=== PATIENT | female | born 1960 | race Caucasian/White ===

== ENCOUNTER 2018-06-12 15:44 | Emergency (ER) | payer BC ==
--- NOTE | 2018-06-12 16:48 | RAD ---
RADIOGRAPH LEFT FIFTH DIGIT THREE VIEWS: HISTORY: A 58-year-old female status post acute traumatic injury to the fifth digit. FINDINGS: Best seen on the lateral view, there is an obliquely oriented linear fracture of the proximal metaphy sis of the fifth distal phalanx, with the proximal component extending to involve the fifth DIP joint surface, without step-off at that joint surface. There is minimal, approximately 0.5 mm volar displ acement of the major distal fragment (minimal dorsal displacement of the posterior proximal fragment) . No other fracture. IMPRESSION: Acute, traumatic, closed, minimally displaced, oblique fracture of the base of the fifth distal phala nx, with intraarticular component. POS: CANDE
[2018-06-12] MEDS ORDERED: Lidocaine 1% w/Epinephrine 1:100K 20 ML VIAL ONE (17:22)
[2018-06-12] MEDS ORDERED: Bacitracin Zinc 1 Packet ONE (17:57)
== END 2018-06-12 18:10 | disposition home or self-care (01) ==
LOC: ERS 15:44
DX: S62.637A Displaced fracture of distal phalanx of left little finger, initial encounter for closed fracture (principal); S61.217A Laceration without foreign body of left little finger without damage to nail, initial encounter; W31.89XA Contact with other specified machinery, initial encounter
CPT/HCPCS: 12001; J2001

== ENCOUNTER 2019-01-01 11:43 | Outpatient (CLI) | payer BC ==
--- NOTE | 2019-01-17 15:48 | MMO ---
Bilateral MAMMO Bilat Screen DDI+BETI. CLINICAL HISTORY: Patient is 58 years old and is seen for screening. The patient has the following family history of breast cancer: paternal grandmother, at age 90, and Throat Cancer and cousin female. The patient has no personal history of cancer. VIEWS: The views performed were: bilateral craniocaudal with tomosynthesis and bilateral mediolateral oblique with tomosynthesis. FILMS COMPARED: The present examination has been compared to prior imaging studies performed at [facility] on 07/02/2002, 12/04/2004, 10/31/2006, 11/01/2008, 01/30/2010, 01/13/2012, 05/09/2013, 11/13/2015 and 08/08/2017. MAMMOGRAM FINDINGS: There are scattered fibroglandular densities. There is a stable mass with circumscribed margins seen in the left breast. There are no suspicious masses, suspicious calcifications, or new areas of architectural distortion. IMPRESSION: THERE IS NO MAMMOGRAPHIC EVIDENCE OF MALIGNANCY. A ROUTINE FOLLOW-UP MAMMOGRAM IN 1 YEAR IS RECOMMENDED. THE RESULTS OF THIS EXAM WERE SENT TO THE PATIENT. ACR BI-RADS Category 2 - Benign finding MAMMOGRAPHY NOTE: 1. A negative mammogram report should not delay a biopsy if a dominant of clinically suspicious mass is present. 2. Approximately 10% to 15% of breast cancers are not detected by mammography. 3. Adenosis and dense breasts may obscure an underlying neoplasm.
== END 2019-01-01 11:44 | disposition home or self-care (01) ==
LOC: BICMAMMO 11:43
PROVIDERS: ATTEND Obstetrics & Gynecology
DX: Z12.31 Encounter for screening mammogram for malignant neoplasm of breast (principal); Z80.3 Family history of malignant neoplasm of breast
CPT/HCPCS: 77063; 77067

== ENCOUNTER 2019-01-23 08:21 | Day surgery (SDC) | payer BC ==
[2019-01-22 12:28] VITALS: BMI 27.3
[2019-01-23] MEDS ORDERED: Midazolam HCl 2 mg/2 ml Vial ONE (08:44)
[2019-01-23] MEDS ORDERED: Fentanyl 100 MCG/2 ML VIAL ONE ×2 (08:44→11:33)
[2019-01-23] MEDS ORDERED: Lidocaine 1% (PF) 30 ML VIAL ONE (09:04)
[2019-01-23 09:11] LABS: #Basophils 0.1 thou/uL (0.0-0.2); #Eosinphils 0.1 thou/uL (0.0-0.7); #Lymphocytes 1.9 thou/uL (1.20-3.40); #Monocytes 0.5 thou/uL (0.11-0.59); #Neutrophils 4.9 thou/uL (1.40-6.50); %Basophils 0.7 % (0.0-1.0); %Eosinophils 0.8 % (0.0-10.0); %Lymphocytes 25.6 % (21.0-51.0); %Monocytes 6.5 % (0.0-10.0); %Neutrophils 66.4 % (42.0-75.0); Hemoglobin 14.2 g/dL (12.0-16.0); Mean Corpuscular HGB CONC 31.7 g/dL (32.0-36.0); Mean Corpuscular Hemoglobin 30.4 pg (27.0-31.0); Mean Platelet Volume 8.3 fL (7.4-10.4); Platelet Count 234 thou/uL (130-400); RBC Distribution Width 11.5 % (11.5-14.5); Red Blood Cell (RBC) Count 4.66 mill/uL (4.20-5.40); White Blood Cell (WBC) Count 7.3 thou/uL (4.8-10.8)
[2019-01-23] MEDS ORDERED: Promethazine HCl 25 MG/ML VIAL IM PRN (09:25)
[2019-01-23] MEDS ORDERED: HYDROcodone/Acetaminophen 10/325 mg Tablet PO PRN ×2 (09:25)
[2019-01-23] MEDS ORDERED: Ropivacaine 0.2% 550 ML 550 ML NERVE BLCK SCH (09:25)
[2019-01-23] MEDS ORDERED: Ketorolac Tromethamine 30 MG/ML VIAL IVP PRN (09:25)
[2019-01-23] MEDS ORDERED: Zolpidem Tartrate 5 MG TAB PO PRN (09:25)
[2019-01-23] MEDS ORDERED: Ondansetron PF 4 MG/2 ML Vial IVP PRN (09:25)
[2019-01-23] MEDS ORDERED: traMADol HCl 50 MG TAB PO PRN ×2 (09:25)
[2019-01-23] MEDS ORDERED: Fentanyl 100 MCG/2 ML VIAL IV PRN (09:26)
[2019-01-23 09:32] LABS: Anion Gap 13 mmol/L (10-20); BUN (Urea Nitrogen) 10 mg/dL (9.8-20.1); Calc. Creatinine Clearance 100 mL/min (70-130); Calcium 9.9 mg/dL (7.8-10.44); Carbon Dioxide 24 mmol/L (22-29); Chloride 106 mmol/L (98-107); Estimated GFR-MDRD 74; Glucose 86 mg/dL (70-105); Potassium 4.2 mmol/L (3.5-5.1); Sodium 139 mmol/L (136-145)
--- NOTE | 2019-01-23 11:46 | OP ---
DATE OF PROCEDURE: 01/23/2019 Dictated by BRANDIE Renteria, for surgeon, Tommy Gaming MD. PREOPERATIVE DIAGNOSIS: Left distal radius T-type intra-articular comminuted, shortened, displaced metaphyseal fracture. POSTOPERATIVE DIAGNOSIS: Left distal radius T-type intra-articular comminuted, shortened, displaced metaphyseal fracture. PROCEDURE PERFORMED: Open reduction and internal fixation of left distal radius metaphyseal fracture. SURGEON: Tommy Gaming MD MANAGER PERSONNEL SELECTION: Neal Renteria PA-C ANESTHESIA: General via LMA augmented with indwelling supraclavicular block. COMPONENTS USED: Synthes two column volar distal radius plate to overriding with distal locking screws. TOURNIQUET TIME: 30 minutes at 250 mmHg. ESTIMATED BLOOD LOSS: Less than 10 mL. INPUT: 1500 mL crystalloid. No Bruce was placed. DRAINS: None. SPECIMENS: None. COMPLICATIONS: None. COUNTS: Correct. FINDINGS: Distal radius metaphyseal fracture with comminution and T-type intra-articular extension. INDICATION FOR SURGERY: May is a 58-year-old white female, who fell on an outstretched left forearm resulting in distal radius fracture. She was admitted today and underwent ORIF for definitive treatment of this problem. PROCEDURE IN DETAIL: After informed consent was obtained in the preoperative holding area, the patient was taken to the operative suite and positioned appropriately on the operating table. The affected limb was then placed on an armboard and a well-padded tourniquet was placed over the proximal brachium. General anesthesia was induced and, once adequate anesthesia was obtained, the affected extremity was then prepped and draped in the usual sterile fashion. Prior to exsanguination, a time-out was called and all members of the surgical team agreed upon all pertinent positives to include site, surgeon, and patient for this particular case. Once completed, an Esmarch was then used to exsanguinate the extremity. Tourniquet was raised, where it remained for the remainder of the case. Please see tourniquet time. After exsanguination, a linear incision was made extending from the first crease of the wrist radially and extended 1 fingerbreadth off the radial margin and down to approximately 3.5 cm proximal. The Bovie electrocautery was used to control local bleeding. Tenotomy scissors were then used to divide the superficial subcuticular and subcutaneous layer with careful dissection. We then came down directly on the flexor carpi radialis. This was retracted ulnarly and blunt finger dissection was then used to identify the flexor pollicis longus and the brachial radialis. This interval was then developed bluntly with finger dissection down to the pronator quadratus. We allowed ourselves plenty of room proximally and distally to allow for the appropriate plate. The pronator quadratus was then identified. Small Hohmanns were placed radially to retract soft tissues and a 15 blade was then used to sharply dissect the radial border of the pronator quadratus. A periosteal elevator was then used to elevate the periosteum. This was then reflected both proximally and distally and held back with an [facility] blunt retractor. The fracture site was then identified. This was opened up, copiously irrigated, cleaned out with a tiny curet. All fracture fragments were then placed in their appropriate position and inline longitudinal traction and reduction of deforming force was then applied and provisional reduction was performed. Fluoroscopy was then brought into the field and we sized for the appropriate plate, which was then placed along the radial margin and provisionally pinned in place and the center variable cortical screw was placed and tightened down to hold reduction. Once this was completed, distal K-wires were then used to hold distal fragment reduction and we used combination of fixed and variable angle locking screws in the distal aspect of the fracture to maintain near anatomic reduction. After this was completed, we then turned attention to the proximal aspect of the plate. The appropriate nonlocking cortical screws were then drilled, measured and placed to allow for subcortical fixation without being long. This was checked in both AP and lateral planes with fluoroscopy. Being happy with our near anatomic reduction and plate placement and all appropriate screw holes tightened and locked, we then copiously irrigated the wound with normal saline. Primary closure was accomplished with 0 Vicryl with the pronator quadratus, which was reflected prior and then placed back along the radial margin. A small subcuticular layer was then placed with 3-0 interrupted Vicryl for provisional closure and skin closure was accomplished with 3-0 interrupted horizontal mattress nylon. A sterile dressing was applied. A volar splint was then placed. The procedure was terminated without any complication. Tourniquet was dropped. Please see tourniquet time above and the patient had good return of capillary refill in all digits and the splint was allowed to harden prior to moving the patient. The patient was awakened in the operative suite and taken to recovery room in stable condition. Job ID: [id number]
--- NOTE | 2019-01-23 11:52 | RAD ---
LEFT WRIST RADIOGRAPHS THREE VIEWS: Date: 01-23-19 Provided Clinical History: ORIF. FINDINGS: No comparisons. Three spot fluoroscopic views of the left wrist are submitted demonstrating plate and screw fixation of distal radial fracture. Ulnar styloid fracture is demonstrated. IMPRESSION: As above. POS: TPC
[2019-01-23] MEDS ORDERED: Ropivacaine 0.2% HCl/PF (40 MG/20 ML VIAL) ONE (13:30)
[2019-01-23] MEDS ORDERED: Ropivacaine 0.5% HCl/PF (150 MG/30 ML VIAL) ONE (13:30)
[2019-01-23] MEDS ORDERED: PROPOFOL 200 MG/20 ML VIAL ONE (13:52)
[2019-01-23] MEDS ORDERED: Lidocaine 1% PF 5 ML VIAL ONE (13:52)
[2019-01-23] MEDS ORDERED: Ondansetron PF 4 MG/2 ML Vial ONE (13:52)
[2019-01-23] MEDS ORDERED: ePHEDrine 50 MG/ML VIAL ONE (13:52)
== END 2019-01-23 13:25 | disposition home or self-care (01) ==
LOC: SDC 08:21
PROVIDERS: ATTEND Orthopaedic Surgery
PROC: 0PSJ04Z Reposition Left Radius with Internal Fixation Device, Open Approach (ICD-10-PCS; principal; 2019-01-23)
DX: S52.572A Other intraarticular fracture of lower end of left radius, initial encounter for closed fracture (principal); S59.202A Unspecified physeal fracture of lower end of radius, left arm, initial encounter for closed fracture; S52.612A Displaced fracture of left ulna styloid process, initial encounter for closed fracture; K21.9 Gastro-esophageal reflux disease without esophagitis; Z79.899 Other long term (current) drug therapy; Z98.890 Other specified postprocedural states; W01.0XXA Fall on same level from slipping, tripping and stumbling without subsequent striking against object, initial encounter; Y93.39 Activity, other involving climbing, rappelling and jumping off; Y92.89 Other specified places as the place of occurrence of the external cause
CPT/HCPCS: 36415; 76000; 80048; 85025; A4306; C1713; J0690; J2001; J2250; J2405; J2704; J2795; J3010; J3490

== ENCOUNTER 2019-07-24 07:45 | Outpatient (CLI) | payer OTHER ==
--- NOTE | 2019-07-24 08:40 | ULT ---
ULTRASOUND ABDOMEN COMPLETE: DATE: 07/24/2019 HISTORY: 59-year-old female with generalized abdominal pain FINDINGS: Gallbladder: Normal wall thickness. No gallstones or sludge identified. No pericholecystic fluid. Liver: Normal parenchymal echogenicity. Bilateral kidneys: No hydronephrosis. Pancreas: Nonspecific sonographic appearance. Common duct caliber: 3 mm. Abdominal aorta: No aneurysm Inferior vena cava: Unremarkable where visualized. Spleen: No splenomegaly. At midline in the substernal region in the anterior upper abdomen, there is a 3 x 2.7 x 2 cm noncysti c heterogeneously hypoechoic mass corresponding to the palpable lump. IMPRESSION: 1) 3 cm solid mass located in substernal region. This corresponds to the palpable lump. Recommend fur ther evaluation with CT of abdomen with contrast. 2) the rest of the ultrasound is negative.
== END 2019-07-24 07:46 | disposition home or self-care (01) ==
LOC: ULT 07:45
PROVIDERS: ATTEND Family Medicine
DX: R10.84 Generalized abdominal pain (principal); R22.2 Localized swelling, mass and lump, trunk
CPT/HCPCS: 76700

== ENCOUNTER 2019-08-01 12:48 | Outpatient (CLI) | payer OTHER ==
--- NOTE | 2019-08-01 14:40 | CT ---
CT ABDOMEN WITH AND WITHOUT CONTRAST: INDICATIONS: Palpable nodule midline lower chest/upper abdomen. Site of concern marked with a marker. FINDINGS: The lung bases are clear. The liver, spleen and pancreas are unremarkable. The stomach and duodenum a ppear unremarkable. There may be a small sliding diaphragmatic hernia. The adrenal glands and kidneys are unremarkable. A small, 1.0 cm cyst inferior pole left kidney. No evidence of urinary calculus. No hydronephrosis. Osseous structures unremarkable. There is no evidence of a subcutaneous mass or abnormality seen in the midline of the lower chest/upp er abdomen at the site of the skin marker. This is at the site of the xiphoid process. IMPRESSION: Unremarkable CT abdomen. POS: TPC
== END 2019-08-01 12:49 | disposition home or self-care (01) ==
LOC: BICCT 12:48
PROVIDERS: ATTEND Family Medicine
DX: R19.00 Intra-abdominal and pelvic swelling, mass and lump, unspecified site (principal)
CPT/HCPCS: 74170

== ENCOUNTER 2020-03-26 07:57 | Outpatient (CLI) | payer OTHER ==
--- NOTE | 2020-03-26 08:53 | MRI ---
MRI LEFT KNEE: DATE: 03/26/2020. PROVIDED CLINICAL HISTORY: Pain. FINDINGS: No comparisons. The anterior cruciate ligament, posterior cruciate ligament, medial collateral ligam ent, and lateral collateral ligamentous complex demonstrate an intact MR appearance, as does the exte nsor mechanism. There is a full-thickness radial tear involving the posterior horn of the medial meniscus as it appro aches the meniscal root. There is associated medial meniscal extrusion. The lateral meniscus demons trates no evidence for a tear. No focal articular cartilage defect is apparent. There is a small knee joint effusion. Postoperative changes involving the proximal tibia are partial ly visualized with associated susceptibility artifact. There is marrow edema focally involving the m edial aspects of the medial tibial plateau in a subarticular location, with associated somewhat linea r T1 and T2 hypointensity. Regional marrow signal unaffected by susceptibility artifact appears othe rwise normal. No focal concerning muscular abnormality. Small Mccarthy's cyst. IMPRESSION: 1. Full-thickness radial tear involving the posterior horn of the medial meniscus as it approaches t he meniscal root with associated medial meniscal extrusion. 2. Findings suggesting subchondral insufficiency fracture involving the medial tibial plateau. 3. Small knee joint effusion with a small Mccarthy's cyst. POS: AH
== END 2020-03-26 07:58 | disposition home or self-care (01) ==
LOC: TBSIIMAG 07:57
PROVIDERS: ATTEND Orthopaedic Surgery
DX: Z03.89 Encounter for observation for other suspected diseases and conditions ruled out (principal); S83.242A Other tear of medial meniscus, current injury, left knee, initial encounter; M25.462 Effusion, left knee; M71.22 Synovial cyst of popliteal space [Baker], left knee

== ENCOUNTER 2020-09-18 09:00 | Outpatient (CLI) | payer OTHER ==
--- NOTE | 2020-09-18 10:03 | MMO ---
Bilateral MAMMO Bilat Diag DDI+BETI. CLINICAL HISTORY: Patient is 60 years old and is seen for diagnostic exam. The patient has the following family history of breast cancer: paternal grandmother, at age 90, and Throat Cancer and cousin female. The patient has no personal history of cancer. VIEWS: The views performed were: right craniocaudal with tomosynthesis and right mediolateral oblique. FILMS COMPARED: The present examination has been compared to prior imaging studies performed at [facility] on 08/08/2017, 01/01/2019 and 09/18/2020. This study has been interpreted with the assistance of computer-aided detection. MAMMOGRAM FINDINGS: There are scattered fibroglandular densities. Finding 1: There is a stable lobular mass measuring 23 x 18 x 21 mm with circumscribed margins seen in the left breast. Finding 2: There are stable benign appearing calcifications seen in both breasts. There are no suspicious masses, suspicious calcifications, or new areas of architectural distortion. IMPRESSION: THERE IS NO MAMMOGRAPHIC EVIDENCE OF MALIGNANCY. A ROUTINE FOLLOW-UP MAMMOGRAM IN 1 YEAR IS RECOMMENDED. THE RESULTS OF THIS EXAM WERE SENT TO THE PATIENT. ACR BI-RADS Category 2 - Benign finding MAMMOGRAPHY NOTE: 1. A negative mammogram report should not delay a biopsy if a dominant of clinically suspicious mass is present. 2. Approximately 10% to 15% of breast cancers are not detected by mammography. 3. Adenosis and dense breasts may obscure an underlying neoplasm. Reported by: SHAUN CARO MD Electonically Signed: [id number]
--- NOTE | 2020-09-18 12:38 | ULT ---
LEFT BREAST ULTRASOUND: HISTORY: The patient developed palpable finding in the left breast following an injury. This palpable finding is at the 4 o'clock region and is described more of an indention rather than a mass. FINDINGS: No solid or cystic mass or other breast abnormality noted to account for this area of clinical concer n. In addition, there is a heterogeneously echogenic solid mass noted in the subareolar region of th e left breast which measures approximately 1.4 x 2.4 x 2.4 cm in size. By mammogram, this mass has b een stable and unchanged since 2009. IMPRESSION: BIRADS category 2, benign findings. Continued annual followup screening mammograms. The area of indention, which is the clinical area of concern by the patient, has no associated mammog raphic or ultrasound correlate. Stable solid mass in the subareolar region is stable dating back to 2009 by mammogram. POS: OFF
== END 2020-09-18 09:01 | disposition home or self-care (01) ==
LOC: BICMAMMO 09:00
PROVIDERS: ATTEND Obstetrics & Gynecology
DX: N63.20 Unspecified lump in the left breast, unspecified quadrant (principal); R92.1 Mammographic calcification found on diagnostic imaging of breast; N63.42 Unspecified lump in left breast, subareolar
CPT/HCPCS: 77066; G0279